=== PATIENT | male | born 1950 | race Asian ===

== ENCOUNTER 2018-11-21 10:31 | Inpatient (IN) | payer MEDICARE, MEDICAID ==
[2018-11-21] VITALS (13 sets, daily range): BP systolic 98–162; BP diastolic 51–87
[~2018-11-21] VITALS: Ht 170.2 cm; Wt 73.5 kg
[~2018-11-21 10:31] MED LIST: ceFAZolin sod 1 GM in NS 55 ML IVPB ONE
[2018-11-21] MEDS ORDERED: ISONIAZID300 MG PO (11:16)
[2018-11-21] MEDS ORDERED: TAMSULOSIN HCL0.4 MG ORAL (11:16)
[2018-11-21] MEDS ORDERED: ATORVASTATIN CA20 MG ORAL (11:16)
--- NOTE | 2018-11-21 12:41 | Anethesia Preoperative Eval ---
Anesthesia Pre-op PMH/ROS General Date of Evaluation: Nov 21, 2018 Anesthesiologist: Zeus ASA Score: ASA 2 Mallampati Score Class I : Soft palate, uvula, fauces, pillars visible Class II: Soft palate, uvula, fauces visible Class III: Soft palate, base of uvula visible Class IV: Only hard plate visible Mallampati Classification: Class II Surgeon: Malik Diagnosis: BPH Surgical Procedure: TURP Anesthesia History: none Family History: no anesthesia problems Allergies: Coded Allergies: No Known Allergies (Unverified , 11/21/18) Medications: see eMAR Patient NPO?: Yes NPO Date: Nov 20, 2018 NPO Time: 1800 Past Medical History Cardiovascular: Reports: other - HLD; Denies: HTN, CAD, MO, valve dz, arrhythmia Pulmonary: Denies: asthma, COPD, LATONYA, other Gastrointestinal/Genitourinary: Denies: GERD, CRI, ESRD, other Neurologic/Psychiatric: Reports: depression/anxiety; Denies: dementia, CVA, TIA, other Endocrine: Denies: DM, hypothyroidism, steroids, other HEENT: Denies: cataract (L), cataract (R), glaucoma, CHEVAK (L), CHEVAK (R), other Hematology/Immune: Reports: other - PEr records HIV but patient denies; Denies: anemia, DVT, bleeding disorder Musculoskeletal/Integumentary: Denies: OA, RA, DJD, DDD, edema, other PSxH Narrative: thoracotomy Anesthesia Pre-op Phys. Exam Physician Exam Last Vital Signs Date Time Temp Pulse Resp B/P (MAP) Pulse Ox O2 Delivery O2 Flow Rate FiO2 11/21/18 11:18 Room Air 11/21/18 11:17 97.6 53 18 119/71 (87) 95 Constitutional: NAD Cardiovascular: RRR Respiratory: CTA Airway Exam Mallampati Score: Class II MO: full ROM: full Teeth: intact Anesthesia Pre-op A/P Labs see chart Studies Pre-op Studies: EKG - sr Risk Assessment & Plan Assessment: ASA II Plan: GA Status Change Before Surgery: No Pre-Antibiotics Drug: Tyra Shaffer MD Nov 21, 2018 12:41
[2018-11-21] MEDS ORDERED: Zemuron 50mg/5ml Inj IV ONE (13:44)
[2018-11-21] MEDS ORDERED: Atropine Sulfate 0.4mg/ml inj ONE (13:45)
[2018-11-21] MEDS ORDERED: Lidocaine 1% MPF 10mg/ml 5ml ONE (13:45)
[2018-11-21] MEDS ORDERED: Ketorolac 30mg Inj ONE (13:45)
[2018-11-21] MEDS ORDERED: Propofol 200mg/20ml IV ONE (13:45)
[2018-11-21] MEDS ORDERED: Neostigmine 1mg/ml 10ml Inj ONE (13:45)
[2018-11-21] MEDS ORDERED: Midazolam 2mg/2ml Inj ONE (13:45)
[2018-11-21] MEDS ORDERED: Sterile Water Irrig 1000ml IRRIG ONE (13:45)
[2018-11-21] MEDS ORDERED: fentaNYL 100 mcg/2 mL IV ONE (13:45)
[2018-11-21] MEDS ORDERED: Glycopyrrolate 0.2mg/ml 1ml Vial ONE (13:45)
[2018-11-21] MEDS ORDERED: NS Irrig 2000ml IRRIG ONE (13:45)
[2018-11-21] MEDS ORDERED: LR 1000ml ONE (13:45)
--- NOTE | 2018-11-21 13:58 | Pre-Procedure Note/Attestation ---
Pre-Procedure Note/Attestation Complete Prior to Procedure Planned Procedure: not applicable Procedure Narrative: TURP Indications for Procedure Pre-Operative Diagnosis: BPH Attestation I attest that I discussed the nature of the procedure; its benefits; risks and complications; and alternatives (and the risks and benefits of such alternatives ), prior to the procedure, with the patient (or the patient's legal event marketing representative). I attest that, if there was a reasonable possibility of needing a blood transfusion, the patient (or the patient's legal event marketing representative) was given the [facility] standardized written summary, pursuant to the [place] Blood Safety Act ([place] Health and Safety Code # 1645, as amended). I attest that I re-evaluated the patient just prior to the surgery and that there has been no change in the patient's H&P, except as documented below: Martin Gan MD Nov 21, 2018 13:58
[2018-11-21] MEDS ORDERED: LR 1000ml 1,000 ML IVLG SCH (14:09)
[2018-11-21] MEDS ORDERED: Metoclopramide 10mg/2ml Inj IVP PRN (14:15)
[2018-11-21] MEDS ORDERED: Midazolam 2mg/2ml Inj IVP PRN (14:15)
[2018-11-21] MEDS ORDERED: DiphenhydrAMINE 50mg/ml Inj IVP PRN (14:15)
[2018-11-21] MEDS ORDERED: Ketorolac 30mg Inj IV PRN (14:15)
[2018-11-21] MEDS ORDERED: fentaNYL 100 mcg/2 mL IV PRN (14:15)
[2018-11-21] MEDS ORDERED: Hydromorphone 0.5mg/0.5ml inj IVP PRN (14:15)
[2018-11-21] MEDS ORDERED: LORazepam Inj 2mg/ml 1ml IV PRN (14:15)
[2018-11-21] MEDS ORDERED: NS Irrig 4000ml IRRIG ONE (14:47)
--- NOTE | 2018-11-21 14:50 | Brief Operative Note ---
Immediate Post Operative Note Operative Note Pre-op Diagnosis: BPH Procedure: TURP Post-op Diagnosis: same Post-op Diagnosis: same as pre-op Surgeon: Rush Gan Anesthesia: general Specimen: yes Complications: none Fluids: 1000 Estimated Blood Loss: minimal Implant(s) used?: No Martin Gan MD Nov 21, 2018 14:50
[2018-11-21] MEDS ORDERED: Norco 5mg/325mg tab ORAL PRN (15:00)
[2018-11-21] MEDS ORDERED: HYDROmorphone 1mg/ml Carpuject IVP PRN (15:00)
--- NOTE | 2018-11-21 15:16 | Immediate Post-Op Evaluation ---
Immediate Post-Op Evalulation Immediate Post-Op Evalulation Procedure: TURP Date of Evaluation: Nov 21, 2018 Time of Evaluation: 15:17 IV Fluids: 1.1L Blood Products: 0 Estimated Blood Loss: 25 Urinary Output: 0 Blood Pressure Systolic: 98 Blood Pressure Diastolic: 57 Pulse Rate: 68 Respiratory Rate: 16 O2 Sat by Pulse Oximetry: 100 Temperature (Fahrenheit): 97.6 Pain Score (1-10): 0 Nausea: No Vomiting: No Complications 0 Patient Status: awake, reacts, patent, none Hydration Status: adequate Drug: Ancef 1g Given Within 1 Hr of Incision: Yes Tyra May MD Nov 21, 2018 15:16
[2018-11-21 16:10] LABS: BASOPHILS % (AUTO) 1.1 % (0.0-2.0); EOSINOPHILS % (AUTO) 1.8 % (0.0-3.0); HEMATOCRIT 42.5 % (42.0-52.0); HEMOGLOBIN 14.4 G/DL (14.2-18.0); LYMPHOCYTES % (AUTO) 31.1 % (20.0-45.0); MEAN CORPUSCULAR VOLUME 95 FL (80-99); MONOCYTES % (AUTO) 7.9 % (1.0-10.0); PLATELET COUNT 112 K/UL (150-450); RED CELL DISTRIBUTION WIDTH 11.6 % (11.6-14.8); WHITE BLOOD COUNT 6.6 K/UL (4.8-10.8)
[2018-11-21 16:28] LABS: ANION GAP 7 mmol/L (5-15); BLOOD UREA NITROGEN 13 mg/dL (7-18); CALCIUM 8.3 MG/DL (8.5-10.1); CARBON DIOXIDE 24 MMOL/L (21-32); CHLORIDE 110 MMOL/L (98-107); CREATININE 0.7 MG/DL (0.55-1.30); POTASSIUM 4.1 MMOL/L (3.5-5.1); SODIUM 141 MMOL/L (136-145)
--- NOTE | 2018-11-21 17:00 | NUR ---
NURSE NOTES: Received patient from Kiarra, THERAPY ADMINISTRATIVE ASSISTANT. Patient a/o x4 lying on the bed. No respiratory distress noted. Denies any pain at this time. Continuous bladder irrigation is running at this time. Bed in lowest position, call light within reach. Will continue to monitor.
[2018-11-21] MEDS: Docusate 100mg cap ORAL SCH ×2 (17:48→17:49)
[2018-11-21] MEDS: D5 1/2NS w/KCl 20mEq 1,000 ML IV SCH (17:48)
--- NOTE | 2018-11-21 19:45 | NUR ---
HAND-OFF: Report given to LINNEA Cota.
[2018-11-21] MEDS: ceFAZolin 2gm/50ml Premix 50 ML IV SCH (21:56)
[2018-11-22] VITALS: BP 112/63
[2018-11-22 04:00] VITALS: BP 98/55
[2018-11-22] MEDS: D5 1/2NS w/KCl 20mEq 1,000 ML IV SCH ×3 (04:00→23:24)
[2018-11-22] MEDS: ceFAZolin 2gm/50ml Premix 50 ML IV SCH (04:00)
[2018-11-22 06:41] LABS: BASOPHILS % (AUTO) 0.8 % (0.0-2.0); EOSINOPHILS % (AUTO) 1.8 % (0.0-3.0); HEMATOCRIT 36.9 % (42.0-52.0); MEAN CORPUSCULAR VOLUME 97 FL (80-99); MONOCYTES % (AUTO) 8.5 % (1.0-10.0); NEUTROPHILS % (AUTO) 66.9 % (45.0-75.0); PLATELET COUNT 110 K/UL (150-450); RED BLOOD COUNT 3.81 M/UL (4.70-6.10); RED CELL DISTRIBUTION WIDTH 12.1 % (11.6-14.8); WHITE BLOOD COUNT 7.8 K/UL (4.8-10.8)
[2018-11-22 07:03] LABS: ANION GAP 6 mmol/L (5-15); BLOOD UREA NITROGEN 12 mg/dL (7-18); CALCIUM 8.3 MG/DL (8.5-10.1); CARBON DIOXIDE 26 MMOL/L (21-32); CHLORIDE 111 MMOL/L (98-107); CREATININE 0.7 MG/DL (0.55-1.30); SODIUM 142 MMOL/L (136-145)
--- NOTE | 2018-11-22 07:30 | NUR ---
HAND-OFF: Report given to LINNEA Marcos.
--- NOTE | 2018-11-22 07:49 | NUR ---
NURSE NOTES: Received report from LINNEA Moralez. Pt in bed, awake, A/o x4, talkative, no complaints of pain, continuous bladder irrigation running per order, bed in lowest position, call light within reach.
[2018-11-22 08:00] VITALS: BP 108/51
[2018-11-22] MEDS: Docusate 100mg cap ORAL SCH ×2 (08:07→17:26)
--- NOTE | 2018-11-22 08:38 | 48 Hour Post Anesthesia Eval ---
Post Anesthesia Evaluation Procedure: TURP Date of Evaluation: Nov 22, 2018 Time of Evaluation: 08:37 Blood Pressure Systolic: 108 0: 65 Pulse Rate: 72 Respiratory Rate: 22 Temperature (Fahrenheit): 97.6 O2 Sat by Pulse Oximetry: 98 Airway: patent Nausea: No Vomiting: No Pain Intensity: 2 Hydration Status: adequate Cardiopulmonary Status: stable Mental Status/LOC: patient returned to baseline Follow-up Care/Observations: n/a Post-Anesthesia Complications: none Follow-up care needed: N/A Chemo Kraft MD Nov 22, 2018 08:38
--- NOTE | 2018-11-22 10:00 | NUR ---
PT EVALUATION NOTE: Patient seen for PT evaluation. Patient independent with all functional mobility without an assistive device. Skilled inpatient PT intervention not indicated, patient discharged from PT, Priti RN notified. Anticipate discharge home once cleared by MD. No DME needs anticipated.
[2018-11-22 12:00] VITALS: BP 115/64
[2018-11-22] MEDS ORDERED: Tubing IV Secondary IV ONE (15:38)
[2018-11-22] MEDS ORDERED: NS Irrig 4000ml IRRIG ONE (15:38)
[2018-11-22 16:00] VITALS: BP 118/63
--- NOTE | 2018-11-22 16:29 | NUR ---
NURSE NOTES: Pt having bright red blood with 600 urine output in [address] Gan's office number, left message to be called back
--- NOTE | 2018-11-22 18:00 | Consultation ---
DATE OF CONSULTATION: 11/22/2018 INTERNAL MEDICINE CONSULTATION CONSULTING PHYSICIAN: Chris Heller M.D. HISTORY OF PRESENT ILLNESS: This is a 68-year-old male with a history of prostatic hypertrophy. He has undergone TURP overnight by Dr. Martin Gan. At this time, a Lovett catheter is in place with bladder irrigation. The urine is pink in color. PAST MEDICAL HISTORY: Notable for HIV positivity, asthma, CAD, hypothyroidism, previous thoracotomy, and depression. MEDICATIONS: Home medications include Claritin, clobetasol, clotrimazole, fluticasone nasal spray, hydrocortisone rectal suppository p.r.n., Keflex, Lotrisone, omeprazole, promethazine, Singulair, triamcinolone, and Ventolin. REVIEW OF SYSTEMS: Denies any headaches, hematemesis, melena, or hematochezia. PHYSICAL EXAMINATION: GENERAL: Reveals a 68-year-old male. HEENT: Unremarkable. LUNGS: Clear breath sounds bilaterally with normal heart sounds. ABDOMEN: Soft. EXTREMITIES: There is no edema. NEUROLOGIC: Nonfocal. LABORATORY DATA: Preoperative labs are unremarkable. Postoperative hemoglobin is 12. Creatinine is 0.7. IMPRESSION: 1. Postop day #1, status post TURP. 2. HIV positivity. 3. Depression. 4. Asthma/COPD. DISCUSSION: I agree with admission and care. Anticipate discharge home in next 24 hours. We will follow. Continue bladder irrigation. Chris Heller M.D. DR: MICHAEL JOB#: [id number] CC:
--- NOTE | 2018-11-22 19:22 | NUR ---
HAND-OFF: Report given to LINNEA Hernandez. Pt stable.
--- NOTE | 2018-11-22 19:50 | NUR ---
NURSE NOTES: Patient in bed awake and alert x4, no s/s distress noted. Continuous bladder irrigation going. No c/o pain or discomfort. Will continue plan of care.
[2018-11-22 20:00] VITALS: BP 120/64
[2018-11-23] VITALS: BP 105/55
[2018-11-23 04:00] VITALS: BP 119/68
[2018-11-23 07:00] LABS: ANION GAP 6 mmol/L (5-15); BLOOD UREA NITROGEN 7 mg/dL (7-18); CALCIUM 8.7 MG/DL (8.5-10.1); CARBON DIOXIDE 27 MMOL/L (21-32); CHLORIDE 110 MMOL/L (98-107); CREATININE 0.7 MG/DL (0.55-1.30); SODIUM 143 MMOL/L (136-145)
--- NOTE | 2018-11-23 07:15 | NUR ---
HAND-OFF: Report given to Christa YARBROUGH.
--- NOTE | 2018-11-23 07:43 | NUR ---
Pt in bed a/o x 4 in no acute distress. [address] catheter [address] place, patent. Pt on continuous bladder irrigation. Bag has pink tinged irrigation fluid/urine. Pt denies pain. IS at bedside, R hand IV running fluids as ordered. Pt on 2L NC, denies SOB. Pt left in bed in low position, call light within reach, continuos irrigation. Will continue to monitor.
[2018-11-23 07:56] LABS: HEMATOCRIT 35.5 % (42.0-52.0); HEMOGLOBIN 11.7 G/DL (14.2-18.0); MEAN CORPUSCULAR VOLUME 96 FL (80-99); PLATELET COUNT 97 K/UL (150-450); RED BLOOD COUNT 3.68 M/UL (4.70-6.10); RED CELL DISTRIBUTION WIDTH 11.9 % (11.6-14.8)
[2018-11-23] MEDS: Docusate 100mg cap ORAL SCH ×2 (08:21→17:31)
[2018-11-23 08:31] VITALS: BP 117/63
--- NOTE | 2018-11-23 09:42 | NUR ---
Called Dr. Heller's office to notify of pts bradycardia of 45, he was paged. Pt in no distress, denies SOB, chest pain. Oxygen 96% on 3l NC. Awaiting call back, will continue to monitor. Addendum: 11/23/18 at 0951 by Christa Claire RN Received call from Dr. Heller, per him d/c continuos irrigation. He will come by to see the patient today. No orders received regarding bradycardia.Notified of CBC results. Will continue to monitor.
--- NOTE | 2018-11-23 11:03 | NUR ---
Called Dr. [place], he agrees to discontinue irrigation. Per him, cleared to go home today with little catheter in place. Plug irrigation site. Will continue to monitor. Addendum: 11/23/18 at 1953 by Christa Claire RN [address] Heller, resume irrigation again. Irrigation resumed.
[2018-11-23 12:00] VITALS: BP 106/57
--- NOTE | 2018-11-23 13:44 | Pulmonology Progress Note ---
Assessment/Plan Assessment/Plan 1. Postop day #2, status post TURP. 2. HIV positivity. 3. Depression. 4. Asthma/COPD. DISCUSSION: I agree with admission and care. Anticipate discharge home in next 24 hours. I will follow. Continue bladder irrigation. Has asymptomatic bradycardia Consider cardiac eval Chris Heller M.D. Subjective Interval Events: None new; bladder irrigation ongoing Constitutional: Reports: no symptoms HEENT: Repors: no symptoms Respiratory: Reports: no symptoms Cardiovascular: Reports: no symptoms Allergies: Coded Allergies: No Known Allergies (Unverified , 11/21/18) Objective Last 24 Hour Vital Signs Date Time Temp Pulse Resp B/P (MAP) Pulse Ox O2 Delivery O2 Flow Rate FiO2 11/23/18 09:00 Nasal Cannula 3.0 11/23/18 08:31 97.9 45 16 117/63 (81) 96 11/23/18 04:00 98.0 63 18 119/68 (85) 97 11/23/18 00:00 98.7 55 18 105/55 (72) 98 11/22/18 21:00 Nasal Cannula 3.0 11/22/18 20:00 98.2 50 17 120/64 (82) 98 11/22/18 16:00 98.9 40 14 118/63 (81) 98 Intake and Output 11/22/18 11/23/18 19:00 07:00 Intake Total 2240 ml 1410 ml Output Total 4800 ml 2800 ml Balance -2560 ml -1390 ml Intake Oral 1040 ml 360 ml IV Total 1200 ml 1050 ml Output Urine Total 4800 ml 2800 ml General Appearance: no acute distress HEENT: normocephalic Respiratory/Chest: chest wall non-tender, lungs clear Cardiovascular: normal peripheral pulses, normal rate Abdomen: normal bowel sounds Microbiology Date/Time Source Procedure Growth Status 11/21/18 11:45 Nasal Nares MRSA Culture - Final NO METHICILLIN RESISTANT STAPH AUREUS... Complete Laboratory Tests 11/23/18 05:30: White Blood Count 8.0, Red Blood Count 3.68L, Hemoglobin 11.7L, Hematocrit 35.5L , Mean Corpuscular Volume 96, Mean Corpuscular Hemoglobin 31.7H, Mean Corpuscular Hemoglobin Concent 32.9, Red Cell Distribution Width 11.9, Platelet Count 97L, Mean Platelet Volume 9.0, Neutrophils (%) (Auto) , Lymphocytes (%) ( Auto) , Monocytes (%) (Auto) , Eosinophils (%) (Auto) , Basophils (%) (Auto) , Differential Total Cells Counted 100, Neutrophils % (Manual) 63, Lymphocytes % ( Manual) 21, Monocytes % (Manual) 10, Eosinophils % (Manual) 5H, Basophils % ( Manual) 1, Band Neutrophils 0, Platelet Estimate DecreasedL, Platelet Morphology Normal, Macrocytosis 1+, Sodium Level 143, Potassium Level 4.0, Chloride Level 110H, Carbon Dioxide Level 27, Anion Gap 6, Blood Urea Nitrogen 7 , Creatinine 0.7, Estimat Glomerular Filtration Rate > 60, Glucose Level 110H, Calcium Level 8.7 Current Medications Medications (Trade) Dose Ordered Sig/Roger Route PRN Reason Start Time Stop Time Status Last Admin Dose Admin Acetaminophen (Tylenol) 650 mg Q6H PRN ORAL Mild Pain (Pain Scale 1-3) 11/21/18 15:00 12/21/18 14:59 Acetaminophen/ Hydrocodone Bitart ([place] 5/325) 1 tab Q4H PRN ORAL Moderate Pain (Pain Scale 4-6) 11/21/18 15:00 11/28/18 14:59 Docusate Sodium (Colace) 100 mg TWICE A DAY ORAL 11/21/18 18:00 12/21/18 17:59 11/23/18 08:21 Hydromorphone HCl (Dilaudid) 1 mg Q3H PRN IVP pain score 4-6 11/21/18 15:00 11/28/18 14:59 Ondansetron HCl (Zofran) 4 mg Q6H PRN IVP Nausea & Vomiting 11/21/18 15:00 12/21/18 14:59 Temazepam (Restoril) 7.5 mg DAILYPRN PRN ORAL Insomnia 11/21/18 15:00 11/28/18 14:59 Chris Heller MD Nov 23, 2018 13:44
[2018-11-23 16:19] VITALS: BP 115/60
--- NOTE | 2018-11-23 19:53 | NUR ---
HAND-OFF: Report given to LINNEA Swan. Pt left in bed a/o x 4 in no acute distress. Continuos bladder irrigation with NS, 3 way little catheter in place. Pt draining sanguineous draine. Pt left in bed in low position, call light within reach, scd's on, skid socks on.
--- NOTE | 2018-11-23 19:53 | NUR ---
NURSE NOTES:Patient received in bed A/A/OX4 Patient denies any pain at this time . no s/s of distress noted little cath fr. [address] catheter in placed patient in continuous bladder irrigation bag pink fluids/ urine output. patient on o2 2l via n/c in placed .patient encourage to use IS .Patient tolerated well . call light within reach bed in low positioned at all times . will continue to monitor.
[2018-11-23 20:00] VITALS: BP 112/61
[2018-11-24] VITALS: BP 122/62
--- NOTE | 2018-11-24 00:15 | Consultation ---
DATE OF CONSULTATION: 11/23/2018 CARDIOLOGY CONSULTATION CONSULTING PHYSICIAN: Quirino Mathis M.D. REASON FOR CONSULTATION: Bradycardia. HISTORY OF PRESENT ILLNESS: This 68-year-old male with a history of prostatic hypertrophy, underwent TURP yesterday without apparent complications and no anesthesia complications either. He was notable to have abnormal heart rate today with bradycardia that has been asymptomatic. The patient states that he has a history of low heart rate and low blood pressure. He has never passed out and does not feel dizzy or lightheaded at this time. PAST MEDICAL HISTORY: Prior thoracotomy, hypothyroidism, coronary artery disease, HIV/AIDS, and asthma. MEDICATIONS: Reviewed and reconciled. ALLERGIES: None known. SOCIAL HISTORY: Nonsmoker. No alcohol or substance abuse. REVIEW OF SYSTEMS: As noted above. PHYSICAL EXAMINATION: VITAL SIGNS: Blood pressure 117/63, pulse 45, and respirations 16. Afebrile. NECK: Supple. Jugular venous pressure normal. LUNGS: Clear. CARDIAC: Regular rhythm, slow rate. Normal S1, S2 with no murmur. ABDOMEN: Soft and nontender. EXTREMITIES: No edema. GENITOURINARY: Lovett catheter in place. LABORATORY DATA: White count 8, hemoglobin 11.7. Sodium 143, potassium 4, bicarb 27, BUN 7, and creatinine 0.7. IMPRESSION: 1. Status post transurethral resection of prostate. 2. Asymptomatic sinus bradycardia. Stable blood pressure parameters with adequate peripheral perfusion. 3. History of HIV/AIDS. 4. History of hypothyroidism. PLAN: 1. Check thyroid panel. 2. Recheck chemistry panel. 3. Monitor orthostatics. 4. Maintain adequate hydration. 5. No indication for pacemaker. 6. Need to ascertain the patient's outpatient medication regimen including thyroid hormone dosing and resume accordingly. Quirino aMthis M.D. DR: YUNG JOB#: [id number] CC:
[2018-11-24 04:00] VITALS: BP 117/69
--- NOTE | 2018-11-24 06:00 | NUR ---
NURSE NOTES: . total fluid / urine output light pink color 9.950 minus total IN irrigation 8.500 . total true urine little cath 1.450. (7p7a)
[2018-11-24 07:10] LABS: BASOPHILS % (AUTO) 0.7 % (0.0-2.0); EOSINOPHILS % (AUTO) 2.4 % (0.0-3.0); HEMATOCRIT 39.3 % (42.0-52.0); LYMPHOCYTES % (AUTO) 26.8 % (20.0-45.0); MEAN CORPUSCULAR VOLUME 96 FL (80-99); MONOCYTES % (AUTO) 7.7 % (1.0-10.0); NEUTROPHILS % (AUTO) 62.5 % (45.0-75.0); PLATELET COUNT 133 K/UL (150-450); RED BLOOD COUNT 4.11 M/UL (4.70-6.10); RED CELL DISTRIBUTION WIDTH 11.9 % (11.6-14.8); WHITE BLOOD COUNT 9.2 K/UL (4.8-10.8)
--- NOTE | 2018-11-24 07:25 | NUR ---
HAND-OFF: Report given tO Marilyn Knowles Patient in stable cndition.
[2018-11-24 07:31] LABS: ANION GAP 7 mmol/L (5-15); BLOOD UREA NITROGEN 13 mg/dL (7-18); CALCIUM 9.4 MG/DL (8.5-10.1); CARBON DIOXIDE 29 MMOL/L (21-32); CHLORIDE 106 MMOL/L (98-107); CREATININE 0.8 MG/DL (0.55-1.30); POTASSIUM 3.9 MMOL/L (3.5-5.1); SODIUM 141 MMOL/L (136-145)
[2018-11-24 08:00] VITALS: BP 114/63
--- NOTE | 2018-11-24 08:02 | NUR ---
NURSE NOTES: Patient alert x4, on nasal cannula at 2 liter, no sign of distress and shortness of breath. No sign of chest pain. IS within reach, encouraged patient to use it. Three way little in place, drain well. Irrigating bottle 4000 liter hugged by PM nurse, Little drains bloody color drainage, will empty as needed. Will keep monitoring patient's blood pressure and pulse and report if HR < 40 and SBP <100. Bed at lowest position, side rails up x2, breaks engaged. Call light within reach. Will keep monitoring.
[2018-11-24] MEDS: Docusate 100mg cap ORAL SCH (08:53)
--- NOTE | 2018-11-24 10:47 | Pulmonology Progress Note ---
Assessment/Plan Assessment/Plan 1. Postop day #3, status post TURP. 2. HIV positivity. 3. Depression. 4. Asthma/COPD. DISCUSSION: I agree with admission and care. DC home Lovett attach to leg bag PO abx Has asymptomatic bradycardia Chris Heller M.D. Subjective Interval Events: Better; urine light pink; Hgb 13 Constitutional: Reports: no symptoms HEENT: Repors: no symptoms Respiratory: Reports: no symptoms Cardiovascular: Reports: no symptoms Genitourinary: Reports: no symptoms Allergies: Coded Allergies: No Known Allergies (Unverified , 11/21/18) Objective Last 24 Hour Vital Signs Date Time Temp Pulse Resp B/P (MAP) Pulse Ox O2 Delivery O2 Flow Rate FiO2 11/24/18 09:00 Nasal Cannula 3.0 11/24/18 08:00 98.3 68 18 114/63 (80) 94 11/24/18 04:00 98.5 62 20 117/69 (85) 96 11/24/18 00:00 98.7 55 18 122/62 (82) 97 11/23/18 21:00 Nasal Cannula 3.0 11/23/18 20:00 98.5 58 18 112/61 (78) 97 11/23/18 16:19 98.4 50 18 115/60 (78) 99 11/23/18 12:00 98.0 57 16 106/57 (73) 94 Intake and Output 11/23/18 11/24/18 18:59 06:59 Intake Total 4000 ml 5850 ml Output Total 500 ml 2000 ml Balance 3500 ml 3850 ml Intake Oral 1350 ml Other 4000 ml 4500 ml Output Urine Total 500 ml 2000 ml General Appearance: no acute distress HEENT: normocephalic Respiratory/Chest: chest wall non-tender Cardiovascular: normal peripheral pulses, normal rate Abdomen: normal bowel sounds Microbiology Date/Time Source Procedure Growth Status 11/21/18 11:45 Nasal Nares MRSA Culture - Final NO METHICILLIN RESISTANT STAPH AUREUS... Complete Laboratory Tests 11/24/18 05:30: White Blood Count 9.2, Red Blood Count 4.11L, Hemoglobin 13.0L, Hematocrit 39.3L , Mean Corpuscular Volume 96, Mean Corpuscular Hemoglobin 31.6H, Mean Corpuscular Hemoglobin Concent 33.1, Red Cell Distribution Width 11.9, Platelet Count 133L, Mean Platelet Volume 9.7, Neutrophils (%) (Auto) 62.5, Lymphocytes ( %) (Auto) 26.8, Monocytes (%) (Auto) 7.7, Eosinophils (%) (Auto) 2.4, Basophils (%) (Auto) 0.7, Sodium Level 141, Potassium Level 3.9, Chloride Level 106, Carbon Dioxide Level 29, Anion Gap 7, Blood Urea Nitrogen 13, Creatinine 0.8, Estimat Glomerular Filtration Rate > 60, Glucose Level 103, Calcium Level 9.4, Magnesium Level 2.0, Pro-B-Type Natriuretic Peptide 26, Thyroid Stimulating Hormone (TSH) 0.529 Current Medications Medications (Trade) Dose Ordered Sig/Roger Route PRN Reason Start Time Stop Time Status Last Admin Dose Admin Acetaminophen (Tylenol) 650 mg Q6H PRN ORAL Mild Pain (Pain Scale 1-3) 11/21/18 15:00 12/21/18 14:59 Acetaminophen/ Hydrocodone Bitart ([place] 5/325) 1 tab Q4H PRN ORAL Moderate Pain (Pain Scale 4-6) 11/21/18 15:00 11/28/18 14:59 Docusate Sodium (Colace) 100 mg TWICE A DAY ORAL 11/21/18 18:00 12/21/18 17:59 11/24/18 08:53 Hydromorphone HCl (Dilaudid) 1 mg Q3H PRN IVP pain score 4-6 11/21/18 15:00 11/28/18 14:59 11/24/18 10:20 Ondansetron HCl (Zofran) 4 mg Q6H PRN IVP Nausea & Vomiting 11/21/18 15:00 12/21/18 14:59 Temazepam (Restoril) 7.5 mg DAILYPRN PRN ORAL Insomnia 11/21/18 15:00 11/28/18 14:59 Chris Heller MD Nov 24, 2018 10:47
[2018-11-24] MEDS ORDERED: DOK100 M1 ORAL (10:49)
[2018-11-24] MEDS ORDERED: NORCO 5-325 TA1 EACH ORAL (10:49)
[2018-11-24] MEDS ORDERED: LEVAQUIN500 MG ORAL (10:49)
[2018-11-24 12:00] VITALS: BP 126/74
[2018-11-24] MEDS ORDERED: Levofloxacin 500mg tab ORAL SCH (13:30)
--- NOTE | 2018-11-24 14:00 | NUR ---
NURSE NOTES: Received report from LINNEA Gonzalez. No respiratory discomfort noted. Denies any pain at this time. Questions answered. Bed in lowest position, call light within reach. Will continue to monitor.
--- NOTE | 2018-11-24 14:05 | NUR ---
HAND-OFF: Report given to LINNEA Blue.
--- NOTE | 2018-11-24 14:28 | NUR ---
NURSE NOTES: Patient ambulates hallway x1 with RN assistance. Denies any pain in stable condition.
[2018-11-24 16:00] VITALS: BP 115/75
--- NOTE | 2018-11-24 17:07 | NUR ---
NURSE NOTES: Spoke with Dr. Gan and patient can be d/c home with home health.
--- NOTE | 2018-11-24 18:15 | NUR ---
NURSE NOTES: Discharge instruction was given including changing urine bag to leg bag. Belongings checked with the patient. Removed IV line. Patient discharged with his in stable condition.
[2018-11-24] MEDS ORDERED: NS Irrig 4000ml IRRIG ONE (18:19)
--- NOTE | 2018-11-25 04:15 | Progress Note ---
DATE: 11/24/2018 CARDIOLOGY PROGRESS NOTE SUBJECTIVE: The patient has no pain or shortness of breath. He still has a catheter in place. Urine is clearing. OBJECTIVE: VITAL SIGNS: Blood pressure 114/63, heart rate 50 to 68, respiratory rate 18 to 20, afebrile. NECK: Supple. LUNGS: Clear. CARDIAC: Regular, slow. S1 and S2. No murmur. ABDOMEN: Soft. EXTREMITIES: No edema. LABORATORY DATA: White count 9.2, hemoglobin 13. Potassium 3.9, magnesium 2, BUN 13, creatinine 0.8, and TSH normal at 0.5. Natriuretic peptide normal at 26. IMPRESSION: 1. Status post TURP. 2. HIV/AIDS. 3. Asymptomatic sinus bradycardia. 4. No signs of structural heart disease. 5. Euthyroid state. PLAN: 1. Outpatient followup. 2. No additional cardiovascular therapy presently indicated. 3. Consider outpatient stress test to assess chronotropic . Quirino Mathis M.D. DR: ANIBAL JOB#: [id number] CC:
[2018-11-25] MEDS ORDERED: Levofloxacin 500mg tab ORAL SCH (09:00)
--- NOTE | 2018-11-25 16:29 | Cardiology Report ---
APPROVED REPORT EKG Measurement Heart [id number] MD [id number] Sinus bradycardia Nonspecific T wave abnormality Abnormal ECG
--- NOTE | 2018-11-26 22:00 | Operative Note - Dictated ---
DATE OF OPERATION: 11/26/2018 PREOPERATIVE DIAGNOSIS: 1. BPH. 2. Chronic retention. POSTOPERATIVE DIAGNOSIS: 1. BPH. 2. Chronic retention. OPERATION: Transurethral resection of the prostate. SURGEON: Martin Gan M.D. ANESTHESIA: General. FINDINGS: Enlarged prostate. INDICATION FOR PROCEDURE: The patient underwent multiple studies with some resolved. He still was complaining of nocturia and frequency despite medications. Treatment options were explained in great length including all potential complications. He signed a consent. DESCRIPTION OF OPERATION: He was brought to the operating room, placed in lithotomy position, prepped and draped in standard fashion under general anesthesia. Resectoscope was introduced into the bladder. Bladder was normal. Ureters were mobilized. After that transurethral resection of the prostate in all four quadrants were made. All the chips were evacuated for the pathologic examination and the base of the prostate was fulgurated with a Bugbee electrode. The patient tolerated the procedure well. A 24-Malagasy three-way Lovett catheter was placed and left indwelling. Sponge count, instrument count was correct. Martin Gan M.D. DR: Sal JOB#: [id number] CC:
--- NOTE | 2018-11-27 16:15 | Discharge Summary ---
Discharge Summary Hospital Course Date of Admission Nov 21, 2018 at 10:31 Date of Discharge Nov 24, 2018 at 18:20 Admitting Diagnosis BPH Reason for Hospitalization: Surgery HPI 68 years old male, Axel Siddiqui, with past medical history BPH, HIV status, COPD/asthma, depression, presented to emergency presented on Nov 21, 2018 at 10: 31 for BPH. Patient presented for elective transurethral resection of prostate . Consultations Dr. Heller-IM/pulmo Procedures s/p 11/21/[address] Gan Transurethral resection of the prostate. Hospital Course status post surgery course of recovery uneventful initially IV fluid and empiric antibiotics continuous bladder irrigation along with manual irrigation as needed initially provided hemoglobin and hematocrit were closely monitored. urine eventually clear and yellow color; continuous bladder irrigation hemoglobin and hematocrit remained stable; prior to discharge hemoglobin 13 , hematocrit 39.3 pain management was addressed, and pain was controlled ambulation was encouraged, was able to ambulate safely incentive spirometry was taught and encourage q 1 hr x10 while in the bed patient slowly started on diet; antiemetic were on board as needed patient was able to tolerate diet bowel regimen instituted home medication resumed respiratory status was closely monitored , remained stable discharge instructions provided, patient was stable for discharge home with home health services: hemodynamic status and vital signs stable, pain controlled, tolerated diet, ambulated, urine clear, Lovett catheter changed to leg bag, patient was instructed on care of leg bag patient to follow-up with urologist as outpatient as advised by surgeon Discharge Medications New Medications: Levofloxacin* (Levaquin*) 500 Mg Tablet 500 MG ORAL DAILY for 7 Days, TAB Docusate Sodium (Dok) 100 Mg Capsule 100 MG ORAL TWICE A DAY for 14 Days, CAP Hydrocodone Bit/Acetaminophen 5-325* (Sarita 5-325*) 1 Each Tablet 1 TAB ORAL Q4H PRN for 10 Days, TAB Continued Medications: Atorvastatin Calcium* (Atorvastatin Calcium*) 20 Mg Tablet 10 MG ORAL BEDTIME, TAB (This prescription has been renewed) Isoniazid (Isoniazid) 300 Mg Tablet 300 MG PO DAILY, TAB (This prescription has been renewed) Tamsulosin Hcl (Tamsulosin Hcl*) 0.4 Mg Cap.er.24h 0.4 MG ORAL BEDTIME, CAP (This prescription has been renewed) Discharge Condition Upon Discharge: stable Discharge Disposition Patient was discharged to Home with Home Health Services Discharge Instructions Discharge Instructions Special Instructions I have been assigned to complete a D/C Summary on this account. I was not involved in the patient management Chuyita Vaughan NP Nov 27, 2018 16:15
== END 2018-11-24 18:20 | disposition home or self-care (01) | DRG 713 ==
LOC: SDSOVERFLO 10:31 → 3E 17:10
PROC: 0VT08ZZ Resection of Prostate, Via Natural or Artificial Opening Endoscopic (ICD-10-PCS; principal; 2018-11-24)
DX: N40.1 Benign prostatic hyperplasia with lower urinary tract symptoms (principal); B20 Human immunodeficiency virus [HIV] disease; R33.8 Other retention of urine; J44.9 Chronic obstructive pulmonary disease, unspecified; I25.10 Atherosclerotic heart disease of native coronary artery without angina pectoris; E03.9 Hypothyroidism, unspecified; F32.9 Major depressive disorder, single episode, unspecified; R00.1 Bradycardia, unspecified
CPT/HCPCS: 36415; 80048; 83735; 83880; 84443; 85007; 85025; 86850; 86900; 86901; 87081; 93005; 94003; 94150; J2250; J2405; J2710